=== PATIENT | male | born 1990 | race Caucasian/White ===

== ENCOUNTER 2017-01-27 12:20 | Emergency (ER) | payer BC ==
[2017-01-27 12:23] VITALS: BP 127/92; PULSE 102; RESP 20; TEMP 97
--- NOTE | 2017-01-27 12:57 | ED ---
Skin/Abscess/FB HPI - General Chief complaint: Skin/Abscess/Foreign Body Stated complaint: Rash Time Seen by Provider: 01/27/17 12:25 Source: patient, RN notes reviewed Mode of arrival: ambulatory Limitations: no limitations - History of Present Illness Initial comments: 26-year-old male presents emergency Department chief complaint of rash for over a month. Patient states is progressively getting worse. He states is primarily on his back, but and upper legs region. Patient states it's worse when he sweats states it's very itchy. Patient states that the only new products she's had is a change in laundry detergent from Tide to gain. He states that when he showers or when he gets up morning is better. Patient denies any contacts with similar symptoms. He states that he's had the same work environment with no changes no new exposures. Patient states he has nothing in his lower arms hands or digits region. Patient denies any difficulty breathing difficulty swallowing. He has not tried anything new to stop the symptoms. - Related Data Previous Rx's Medication Instructions Recorded Cephalexin [Keflex] 500 mg PO Q6HR #28 cap 01/27/17 predniSONE 50 mg PO DAILY #5 tab 01/27/17 Allergies Allergy/AdvReac Type Severity Reaction Status Date / Time No Known Allergies Allergy Verified 01/27/17 12:32 Review of Systems ROS Statement: Those systems with pertinent positive or pertinent negative responses have been documented in the HPI. ROS Other: All systems not noted in ROS Statement are negative. Past Medical History Past Medical History: No Reported History History of Any Multi-Drug Resistant Organisms: None Reported Past Surgical History: No Surgical Hx Reported Past Psychological History: No Psychological Hx Reported Smoking Status: Current every day smoker Past Alcohol Use History: None Reported Past Drug Use History: None Reported General Exam Limitations: no limitations General appearance: alert, in no apparent distress Head exam: Present: atraumatic, normocephalic, normal inspection Eye exam: Present: normal appearance, PERRL, EOMI. Absent: scleral icterus, conjunctival injection, periorbital swelling ENT exam: Present: normal exam, normal oropharynx, mucous membranes moist Neck exam: Present: normal inspection, full ROM. Absent: tenderness, meningismus, lymphadenopathy Respiratory exam: Present: normal lung sounds bilaterally. Absent: respiratory distress, wheezes, rales, rhonchi, stridor Cardiovascular Exam: Present: regular rate, normal rhythm, normal heart sounds. Absent: systolic murmur, diastolic murmur, rubs, gallop, clicks Neurological exam: Present: alert Skin exam: Present: warm, dry, intact, normal color, rash (Erythematous macular slightly papular rash, primary patient's back, buttocks region there is no excoriations no large abscess lesions. There is no vesicular regions) Course Vital Signs 01/27/17 12:21 Temperature 97 F L Pulse Rate 102 H Respiratory 20 Rate Blood Pressure 127/92 O2 Sat by Pulse 99 Oximetry Medical Decision Making - Medical Decision Making 26-year-old male presents emergency Department chief complaint rash. Patient's symptoms are probably related to dermatitis possibly to his or detergents. Discussed possibilities of the colitis as it's small macular to papular regions and some on hair follicles. At this point the patient is advised to switch to detergents and given prednisone for ALLERGIC and Keflex to rule out any bacterial skin infections. Patient agrees this plan he'll be referred to [facility] for recheck if no improvement in symptoms. Disposition Clinical Impression: Dermatitis Disposition: HOME SELF-CARE Condition: Stable Instructions: Dermatitis (ED) Additional Instructions: Please return to the Emergency Department if symptoms worsen or any other concerns. Prescriptions: Cephalexin [Keflex] 500 mg PO Q6HR #28 cap predniSONE 50 mg PO DAILY #5 tab Referrals: None,Stated [Primary Care Provider] - 1-2 days Time of Disposition: 12:57
== END 2017-01-27 13:07 | disposition home or self-care (01) ==
LOC: EC 12:20
DX: L30.9 Dermatitis, unspecified (principal); F17.200 Nicotine dependence, unspecified, uncomplicated
CPT/HCPCS: 99282